=== PATIENT | female | born 1930 | race American Indian/Alaskan Native ===

== ENCOUNTER 2016-11-21 08:20 | Outpatient (CLI) | payer MEDICARE ==
--- NOTE | 2016-11-21 12:12 | Ultrasound Report ---
RENAL SONOGRAM: HISTORY: Chronic kidney disease. FINDINGS: Right kidney 7.9 x 3.6 x 3.9 cm. Cortical thickness 1.2 cm. No mass. No hydronephrosis. Left kidney 8.9 x 3.8 x 4 cm. Cyst at the upper pole of left kidney measures 4.3 x 4.1 x 4 cm. No hydronephrosis. IMPRESSION: Cyst upper pole left kidney.
== END 2016-11-21 08:21 | disposition home or self-care (01) ==
LOC: US 08:20
PROVIDERS: ATTEND Internal Medicine Nephrology
DX: N18.3 Chronic kidney disease, stage 3 (moderate) (principal); N28.1 Cyst of kidney, acquired
CPT/HCPCS: 76770

== ENCOUNTER 2017-05-16 11:22 | Inpatient (IN) | payer MEDICAID, MEDICARE ==
[2017-05-16] MEDS ORDERED: REGLAN IV ONE (11:57)
[2017-05-16] MEDS ORDERED: MORPHINE IV ONE (11:57)
[2017-05-16] MEDS ORDERED: TYLENOL #3 PO ONE (11:59)
--- NOTE | 2017-05-16 12:12 | Emergency Department Report ---
ED Chest Pain HPI - General Chief Complaint: Chest Pain Stated Complaint: CHEST PAIN Time Seen by Provider: 05/16/17 11:51 Source: patient, family, EMS Mode of arrival: Stretcher Limitations: Physical Limitation - History of Present Illness Initial Comments: This is a 87-year-old Afro-[place] female presents to the emergency department by EMS from home with complaint of chest pain that is going on for the past 3-4 hours prior to presentation. There is some radiation towards neck and jaw. She denies any shortness of breath at this time. She has a history of arthritis , asthma, CHF, multiple CVA, DVT, diabetes, coronary artery disease with OH, hypertension, renal and liver disease, among other comorbidities. Her primary care physician is Dr. Jorge Angela and her mobile pet groomer is Dr. Victor. Her daughter, whom she lives with, gave her a baby aspirin and placed a nitroglycerin patch on her. EMS and gave her a further 162 mg of aspirin. She denies any history of alcohol or back obese. No recent travel or sick contacts at home. Patient is legally blind. Severity scale (0 -10): 9 - Related Data Home Medications Medication Instructions Recorded Confirmed Last Taken Levothyroxine [Synthroid] 112 mcg PO Q48HR 10/04/15 05/16/17 05/15/17 Bumetanide (Nf) [Bumex 0.5mg tab] 0.5 mg PO DAILY 05/16/17 05/16/17 Unknown Ergocalciferol [Vitamin D2] 1 cap PO QWEEK 05/16/17 05/16/17 05/13/17 Metoprolol [Lopressor] 25 mg PO BID 05/16/17 05/16/17 05/15/17 Previous Rx's Medication Instructions Recorded Last Taken Type Aspirin [Aspirin BABY CHEW TAB] 81 mg PO QDAY tab.chew 07/19/16 05/15/17 Rx Nitroglycerin [Nitro Dur] 0.4 mg TD QDAY patch 07/19/16 05/15/17 Rx Simvastatin [Zocor TAB] 20 mg PO QHS tablet 07/19/16 05/15/17 Rx Zolpidem [Ambien] 10 mg PO HS tablet 07/19/16 05/15/17 Rx acetaZOLAMIDE [Diamox TAB] 250 mg PO BID tablet 07/19/16 05/15/17 Rx carBAMazepine [TEGretol] 200 mg PO QDAY tab.chew 07/19/16 05/15/17 Rx Allergies Allergy/AdvReac Type Severity Reaction Status Date / Time erythromycin base Allergy Swelling Verified 12/11/15 13:20 hydromorphone HCl Allergy Itching Verified 12/11/15 13:20 [From Dilaudid] morphine Allergy Itching/TONGUE/LIPS Verified 10/04/15 05:35 SWELLING oxytetracycline AdvReac Severe TONGUE Verified 08/21/13 11:13 [From Terramycin] SWELLS,BUMPS ON TONGUE oxytetracycline HCl AdvReac Severe TONGUE Verified 08/21/13 11:13 [From Terramycin] SWELLS,BUMPS ON TONGUE Tetracyclines AdvReac Severe UPSET Verified 08/21/13 11:13 STOMACH,TONGUE SWELLS gabapentin AdvReac Unknown Verified 08/16/16 17:06 Heart Score - HEART Score History: Highly suspicious EKG: Non-specific Age: > 65 Risk factors: > 3 risk factors or hx of atherosclerotic disease Troponin: < normal limit HEART Score: 7 ED Review of Systems ROS: Stated complaint: CHEST PAIN Other details as noted in HPI Comment: All other systems reviewed and negative Constitutional: denies: chills, fever Eyes: denies: eye pain, eye discharge, vision change ENT: denies: ear pain, throat pain Respiratory: denies: cough, shortness of breath, wheezing Cardiovascular: chest pain. denies: palpitations Gastrointestinal: denies: abdominal pain, nausea, diarrhea Genitourinary: denies: urgency, dysuria, discharge Musculoskeletal: arthralgia. denies: joint swelling Skin: denies: rash, lesions Neurological: denies: headache, weakness, paresthesias ED Past Medical Hx - Past Medical History Hx Hypertension: Yes Hx CVA: Yes Hx Heart Attack/AMI: Yes Hx Congestive Heart Failure: Yes Hx Diabetes: Yes Hx Deep Vein Thrombosis: Yes (left arm 08/2016) Hx Liver Disease: Yes Hx Renal Disease: Yes Hx Arthritis: Yes (hip, knee) Hx Headaches / Migraines: Yes Hx Seizures: Yes Hx Asthma: Yes Hx HIV: No Additional medical history: legally blind - Surgical History Past Surgical History?: Yes Hx Coronary Stent: Yes Hx Pacemaker: Yes Hx Cholecystectomy: Yes Additional Surgical History: bilateral mastectomy, 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 - Social History Smoking Status: Never Smoker Substance Use Type: None - Medications Home Medications: Home Medications Medication Instructions Recorded Confirmed Last Taken Type Levothyroxine [Synthroid] 112 mcg PO Q48HR 10/04/15 05/16/17 05/15/17 History Aspirin [Aspirin BABY CHEW TAB] 81 mg PO QDAY tab.chew 07/19/16 05/16/17 Rx Nitroglycerin [Nitro Dur] 0.4 mg TD QDAY patch 07/19/16 05/16/17 05/15/17 Rx Simvastatin [Zocor TAB] 20 mg PO QHS tablet 07/19/16 05/16/17 05/15/17 Rx Zolpidem [Ambien] 10 mg PO HS tablet 07/19/16 05/16/17 05/15/17 Rx acetaZOLAMIDE [Diamox TAB] 250 mg PO BID tablet 07/19/16 05/16/17 05/15/17 Rx carBAMazepine [TEGretol] 200 mg PO QDAY tab.chew 07/19/16 05/16/17 05/15/17 Rx Bumetanide (Nf) [Bumex 0.5mg tab] 0.5 mg PO DAILY 05/16/17 05/16/17 Unknown History Ergocalciferol [Vitamin D2] 1 cap PO QWEEK 05/16/17 05/16/17 05/13/17 History Metoprolol [Lopressor] 25 mg PO BID 05/16/17 05/16/17 05/15/17 History ED Physical Exam - General Limitations: Physical Limitation - Other Other exam information: GENERAL: The patient is well-developed well-nourished. HEENT: Normocephalic. Atraumatic. Extraocular motions are intact. Patient has moist mucous membranes. NECK: Supple. Trachea is midline. CHEST/LUNGS: Clear to auscultation. There is no respiratory distress noted. HEART/CARDIOVASCULAR: Regular. There is no tachycardia. There is no gallop rub or murmur. ABDOMEN: Abdomen is soft, nontender. Patient has normal bowel sounds. There is no abdominal distention. SKIN: Skin is warm and dry. NEURO: The patient is awake, alert. The patient is cooperative. The patient has no focal neurologic deficits. The patient has normal speech. MUSCULOSKELETAL: There is no tenderness or deformity. There is no limitation range of motion. There is no evidence of acute injury. ED Course Vital Signs 05/16/17 05/16/17 05/16/17 11:34 11:46 12:00 Temperature 98.4 F Pulse Rate 115 H 116 H 103 H Respiratory 25 H 27 H 14 Rate Blood Pressure 159/108 159/108 O2 Sat by Pulse 97 98 97 Oximetry 05/16/17 05/16/17 12:05 12:30 Temperature Pulse Rate 99 H Respiratory 20 13 Rate Blood Pressure 147/96 O2 Sat by Pulse 95 Oximetry SEDRICK score - Sedrick Score Age > 65: (1) Yes Aspirin use within the Past 7 Days: (1) Yes 3 or more CAD Risk Factors: (1) Yes 2 or more Angina events in past 24 hrs: (0) No Known CAD with more than 50% Stenosis: (0) No Elevated Cardiac Markers: (0) No ST Deviation Greater than 0.5mm: (0) No SEDIRCK Score: 3 ED Medical Decision Making - Lab Data Result diagrams: 05/16/17 12:21 05/16/17 12:21 - EKG Data -: EKG Interpreted by Me EKG shows normal: sinus rhythm, axis (left axis deviation), intervals ( prolonged QTC), QRS complexes (right bundle-branch block, left anterior fascicular block), ST-T waves (nonspecific ST-T waves) Rate: tachycardia (116 bpm) - EKG Data Interpretation: unchanged when compared t (08/19/16) - Radiology Data Radiology results: image reviewed interpreted by me: Chest x-ray did not show any acute process. Heart is normal shape and size. No effusions. No pneumothorax. No signs of pneumonia seen. - Medical Decision Making 87 her old female presents with acute chest pain starting a few hours prior to presentation. EKG does not show any signs of ST elevation OH and is unchanged from previous. Chest x-ray does not show any acute process. Labs are unremarkable including a negative troponin. Patient is compliant with her Eloquist and therefore low suspicion for pulmonary embolism. However she has advanced age with a history of multiple TIA/CVA, coronary artery disease with multiple OH. She will be admitted to the hospital for further evaluation, and continued telemetry, serial troponins and probable cardio consultation. Patient has been accepted for admission by the hospitalist, Dr. Gracie. - Differential Diagnosis OH, PE, pneumonia, CHF Critical Care Time: No Critical care attestation.: If time is entered above; I have spent that time in minutes in the direct care of this critically ill patient, excluding procedure time. ED Disposition Clinical Impression: HTN (hypertension) Qualifiers: Hypertension type: essential hypertension Qualified Code(s): I10 - Essential ( primary) hypertension CAD (coronary artery disease) Qualifiers: Coronary Disease-Associated Artery/Lesion type: unspecified vessel or lesion type [place] vs. transplanted heart: [place] heart Associated angina: with unspecified angina Qualified Code(s): I25.119 - Atherosclerotic heart disease of [place] coronary artery with unspecified angina pectoris Chest pain Qualifiers: Chest pain type: unspecified Qualified Code(s): R07.9 - Chest pain, unspecified Disposition: -09 OP ADMIT IP TO THIS HOSP Is pt being admited?: Yes Condition: Stable Instructions: Chest Pain (ED), Hypertension (ED) Referrals: PRIMARY CARE, [Primary Care Provider] - 3-5 Days Time of Disposition: 13:17
[2017-05-16 12:38] LABS: Basophils % (Auto) 1.2 % (0.0-1.8); Eosinophils % (Auto) 2.5 % (0.0-4.3); Hematocrit 41.7 % (30.3-42.9); Hemoglobin 13.4 gm/dl (10.1-14.3); Mean Corpuscular HGB Conc 32 % (30-34); Mean Corpuscular Hemoglobin 27 pg (28-32); Mean Corpuscular Volume 85 fl (79-97); Platelet Count 188 K/mm3 (140-440); Red Blood Count 4.93 M/mm3 (3.65-5.03); White Blood Count 7.3 K/mm3 (4.5-11.0)
--- NOTE | 2017-05-16 12:39 | Admit Criteria Form ---
Admission Criteria Documentation: CHEST PAIN Clinical Indications for Admission to Inpatient Care (Place 'X' for any and all applicable criteria): Admission is indicated for chest pain and ANY ONE of the following(1)(2)(3)(4)(5 ): [ ]I. Angina with acute coronary syndrome (Also use Myocardial Infarction or Angina guideline) [ ]II. Hemodynamic instability [ X]III. Angina needing acute intervention as indicated by ALL of the following (11)(12): [X ]a) Unstable angina is present as indicated by angina that is ANY ONE of the following: [ ]i) New onset [ ]ii) Nocturnal [ ]iii) Prolonged at rest [ X]iv) Progressive [X ]b) Angina warrants acute intervention as indicated by ANY ONE of the following: [ ]i) Recurrent angina (e.g, not responding as previously to treatment) [ ]ii) Angina at rest or with low-level activities despite initial medical therapy [ ]iii) New or presumably new ST-segment depression on ECG [ ]iv) Signs or symptoms of heart failure (eg, dyspnea, pulmonary edema) [ ]v) New or worsening mitral regurgitation [ ]vi) Hemodynamic instability [ ]vii) Dangerous arrhythmia (eg, sustained ventricular tachycardia) [ ]viii) History of percutaneous coronary intervention within 6 months [ ]ix) History of coronary artery bypass graft surgery [X ]x) MAYELA risk score of 2 or greater[A] [ ]xi) History of Diabetes(14) [ ]xii) High-risk cardiac ischemia findings on noninvasive testing (e.g, echocardiogram, treadmill testing, nuclear scan) [ ]xiii) Chronic renal insufficiency (ie, estimated GFR less than 60 mL/min/1.732m) [ ]xiv) Left ventricular ejection fraction less than 40% [ ]IV. Evidence of FL (eg, cardiac biomarkers positive, ST-segment elevation on ECG) also use Myocardial Infarction Criteria Form. [ ]V. Pulmonary edema [ ]. Respiratory distress [ ]VII. Chest pain indicative of serious diagnosis other than coronary artery disease (eg, aortic dissection) [ ]VIII. Contraindications and/or Inappropriate clinical situations for Observational Care in patients with Chest Pain, when ANY ONE of the following is required: [ ]a) Patient with risk factor for pulmonary embolism, acute coronary syndrome and myocardial infarction (18) [ ]b) Patient with Pulmonary embolism require an average LOS of 4.3 days, therefore emergency department observation management is inappropriate 18,23 [ ]c) Painful condition/s in the elderly, have the highest rate of recidivism after emergency department observation management (10.8%) 20,21,22 [ ]d) Elevated cardiac biomarker requires intensive and exhaustive care (19) [X ]IX. General contraindications and/or Inappropriate clinical situations for Observational Care in patients with Chest Pain, when ANY ONE of the following is required: [X ]a) Prediction of prolongation of LOS based on ANY ONE of the following may be considered as a contraindication for observational care 2, 3, 4, 5, 6, 7, 8, 9, 10, 11 [X ]i) Age > 65 yrs. [ X]ii) Patient arriving by ambulance [ ]iii) Patient with high acuity [ ]iv) Patient requiring vital sign monitoring [ ]v) Patient on IV medication [ ]b) Systolic blood pressures 180mmHg 3,12 [ ]c) Patient with altered mental status including delirium and other alteration of consciousness, (3) [ ]d) Patient whose discharge disposition will be to a intermediate home or rehabilitation home should not be managed in Emergency Department Observation Unit. CMS rule requires 3 days hospital stay before such placement. 3,13 [ ]e) Patient with failure to thrive due to broad array of etiologies 3,16,17 [ ]f) Inability to ambulate 3,14 Extended stay beyond goal length of stay may be needed for (1)(28): [ ]a) Specific condition diagnosed after evaluation (eg, pulmonary embolism, aortic dissection) [ ]b) Unstable angina [ ]c) Continued suspicion of acute coronary syndrome with inability to complete needed cardiac evaluation (eg, patient clinically unable to undergo stress testing) [ ]d) Myocardial infarction (Contents from ANGINA and CHEST PAIN clinical indications for admission to inpatient care have been integrated in this form) The original [employer] content created by [employer] has been revised. The portions of the content which have been revised are identified through the use of italic text or in bold, and [facility] has neither reviewed nor approved the modified material. All other unmodified content is copyright [facility]. Please see references footnoted in the original [facility] edition 2016 Admission Criteria Met: Yes
[2017-05-16 12:48] LABS: Anion Gap 18 mmol/L; BUN/Creatinine Ratio 14.54; Blood Urea Nitrogen 16 mg/dL (7-17); Calcium 9.1 mg/dL (8.4-10.2); Carbon Dioxide 21 mmol/L (22-30); Chloride 106.5 mmol/L (98-107); Glucose 115 mg/dL (65-100); Potassium 4.2 mmol/L (3.6-5.0); Sodium 141 mmol/L (137-145)
--- NOTE | 2017-05-16 12:56 | XRay Report ---
Portable chest: Chest pain. The right lung is well aerated and clear. The markings at the right lung base may be slightly prominent and there could be some areas of mild atelectasis. The remainder of the lung is clear. The aorta is tortuous with a probably normal sized heart. There are an intact bipolar pacemaker leads. Impression: Questionable atelectatic changes at the left base. Doubt infiltrate.
[2017-05-16] MEDS ORDERED: DUONEB *Not for PRN Use IH ONE (14:10)
[2017-05-16] MEDS ORDERED: NORCO 5/325 PO ONE (14:52)
[2017-05-16] MEDS ORDERED: ZOFRAN IV PRN ×2 (20:36→21:50)
[2017-05-16] MEDS: TYLENOL #3 PO PRN (20:48)
[2017-05-16] MEDS ORDERED: AMBIEN PO PRN (21:03)
--- NOTE | 2017-05-16 21:48 | History and Physical Report ---
History of Present Illness Date of examination: 05/16/17 Date of admission: 05/16/17 13:17 Chief complaint: Chest pain for 4 hours History of present illness: History of Present Illness This is a 87-year-old Afro-[place] female presents to the emergency department by EMS from home with complaint of chest pain that is going on for the past 3-4 hours prior to presentation. There is some radiation towards neck and jaw. She denies any shortness of breath at this time. She has a history of arthritis , asthma, CHF, multiple CVA, DVT, diabetes, coronary artery disease with VT, hypertension, renal and liver disease, among other comorbidities. Her primary care physician is Dr. Jorge Angela and her auricular acupuncturist is Dr. Victor. Her daughter, whom she lives with, gave her a baby aspirin and placed a nitroglycerin patch on her. EMS and gave her a further 162 mg of aspirin. She denies any history of alcohol or back obese. No recent travel or sick contacts at home. Patient is legally blind. Severity scale (0 -10): 9 Heart Score - HEART Score History: Highly suspicious EKG: Non-specific Age: > 65 Risk factors: > 3 risk factors or hx of atherosclerotic disease Troponin: < normal limit HEART Score: 7 Past Medical History Hx Hypertension: Yes Hx CVA: Yes Hx Heart Attack/AMI: Yes Hx Congestive Heart Failure: Yes Hx Diabetes: Yes Hx Deep Vein Thrombosis: Yes (left arm 08/2016) Hx Liver Disease: Yes Hx Renal Disease: Yes Hx Arthritis: Yes (hip, knee) Hx Headaches / Migraines: Yes Hx Seizures: Yes Hx Asthma: Yes Additional medical history: legally blind - Surgical History Past Surgical History?: Yes Hx Coronary Stent: Yes Hx Pacemaker: Yes Hx Cholecystectomy: Yes Additional Surgical History: bilateral mastectomy, 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 - Social History Smoking Status: Never Smoker Substance Use Type: None - Medications Home Medications: Home Medications Medication Instructions Recorded Confirmed Last Taken Type Levothyroxine [Synthroid] 112 mcg PO Q48HR 10/04/15 05/16/17 05/15/17 History Aspirin [Aspirin BABY CHEW TAB] 81 mg PO QDAY tab.chew 07/19/16 05/16/17 Rx Nitroglycerin [Nitro Dur] 0.4 mg TD QDAY patch 07/19/16 05/16/17 05/15/17 Rx Simvastatin [Zocor TAB] 20 mg PO QHS tablet 07/19/16 05/16/17 05/15/17 Rx Zolpidem [Ambien] 10 mg PO HS tablet 07/19/16 05/16/17 05/15/17 Rx acetaZOLAMIDE [Diamox TAB] 250 mg PO BID tablet 07/19/16 05/16/17 05/15/17 Rx carBAMazepine [TEGretol] 200 mg PO QDAY tab.chew 07/19/16 05/16/17 05/15/17 Rx Bumetanide (Nf) [Bumex 0.5mg tab] 0.5 mg PO DAILY 05/16/17 05/16/17 Unknown History Ergocalciferol [Vitamin D2] 1 cap PO QWEEK 05/16/17 05/16/17 05/13/17 History Metoprolol [Lopressor] 25 mg PO BID 05/16/17 05/16/17 05/15/17 History ROS: Stated complaint: CHEST PAIN Other details as noted in HPI Comment: All other systems reviewed and negative Constitutional: denies: chills, fever Eyes: denies: eye pain, eye discharge, vision change ENT: denies: ear pain, throat pain Respiratory: denies: cough, shortness of breath, wheezing Cardiovascular: chest pain. denies: palpitations Gastrointestinal: denies: abdominal pain, nausea, diarrhea Genitourinary: denies: urgency, dysuria, discharge Musculoskeletal: arthralgia. denies: joint swelling Skin: denies: rash, lesions Neurological: denies: headache, weakness, paresthesias Medications and Allergies Allergies Allergy/AdvReac Type Severity Reaction Status Date / Time erythromycin base Allergy Swelling Verified 12/11/15 13:20 hydromorphone HCl Allergy Itching Verified 12/11/15 13:20 [From Dilaudid] morphine Allergy Itching/TONGUE/LIPS Verified 10/04/15 05:35 SWELLING oxytetracycline AdvReac Severe TONGUE Verified 08/21/13 11:13 [From Terramycin] SWELLS,BUMPS ON TONGUE oxytetracycline HCl AdvReac Severe TONGUE Verified 08/21/13 11:13 [From Terramycin] SWELLS,BUMPS ON TONGUE Tetracyclines AdvReac Severe UPSET Verified 11/14/13 11:13 STOMACH,TONGUE SWELLS gabapentin AdvReac Unknown Verified 08/16/16 17:06 Home Medications Medication Instructions Recorded Confirmed Last Taken Type Levothyroxine [Synthroid] 112 mcg PO Q48HR 10/04/15 05/16/17 05/15/17 History Aspirin [Aspirin BABY CHEW TAB] 81 mg PO QDAY tab.chew 07/19/16 05/16/17 Rx Nitroglycerin [Nitro Dur] 0.4 mg TD QDAY patch 07/19/16 05/16/17 05/15/17 Rx Simvastatin [Zocor TAB] 20 mg PO QHS tablet 07/19/16 05/16/17 05/15/17 Rx Zolpidem [Ambien] 10 mg PO HS tablet 07/19/16 05/16/17 05/15/17 Rx acetaZOLAMIDE [Diamox TAB] 250 mg PO BID tablet 07/19/16 05/16/17 05/15/17 Rx carBAMazepine [TEGretol] 200 mg PO QDAY tab.chew 07/19/16 05/16/17 05/15/17 Rx Bimatoprost [Lumigan 0.01%] 1 drop OP QPM 05/16/17 05/16/17 1 Day Ago History Bumetanide (Nf) [Bumex 0.5mg tab] 0.5 mg PO DAILY 05/16/17 05/16/17 Unknown History Ergocalciferol [Vitamin D2] 1 cap PO QWEEK 05/16/17 05/16/17 05/13/17 History Metoprolol [Lopressor] 25 mg PO BID 05/16/17 05/16/17 05/15/17 History Rivaroxaban [Xarelto] 15 mg PO DAILY 05/16/17 05/16/17 1 Day Ago History Zolpidem [Ambien] 10 mg PO QHS 05/16/17 05/16/17 1 Day Ago History Active Meds: Active Medications Acetaminophen/Codeine Phosphate (Tylenol #3) 2 tab PO Q4H PRN PRN Reason: Pain, Moderate (4-6) Last Admin: 05/16/17 20:48 Dose: 2 tab Acetazolamide (Diamox) 250 mg PO BID PERI Carbamazepine (Tegretol) 200 mg PO DAILY PERI Latanoprost (Xalatan 0.005%) 1 drops OU QPM [facility] Levothyroxine Sodium (Synthroid) 112 mcg PO Q48H [facility] Metoprolol Tartrate (Lopressor) 25 mg PO BID [facility] Ondansetron HCl (Zofran) 4 mg IV Q8H PRN PRN Reason: Nausea And Vomiting Last Admin: 05/16/17 20:49 Dose: 4 mg Rivaroxaban (Xarelto) 15 mg PO QDAY PERI PRN Reason: Protocol Simvastatin (Zocor) 20 mg PO QHS PERI Zolpidem Tartrate (Ambien) 10 mg PO QHS PRN PRN Reason: Insomnia Exam - Physical Exam Narrative exam: Lying comfortably - Constitutional Vitals: Temp Pulse Resp BP Pulse Ox 98.7 F 72 18 136/86 96 05/16/17 20:07 05/16/17 20:23 05/16/17 20:07 05/16/17 20:07 05/16/17 20:07 General appearance: Present: no acute distress, well-nourished - EENT Eyes: Present: PERRL ENT: hearing intact, clear oral mucosa - Neck Neck: Present: supple, normal ROM - Respiratory Respiratory effort: normal Respiratory: bilateral: CTA - Cardiovascular Heart rate: 80 Rhythm: regular Heart Sounds: Present: S1 & S2. Absent: rub, click - Extremities Extremities: no ischemia, pulses intact, pulses symmetrical, No edema Peripheral Pulses: within normal limits - Abdominal General gastrointestinal: Present: soft, non-tender, non-distended, normal bowel sounds Female genitourinary: Present: normal - Rectal Rectal Exam: deferred - Integumentary Integumentary: Present: clear, warm, dry - Musculoskeletal Musculoskeletal: gait normal, strength equal bilaterally - Psychiatric Psychiatric: appropriate mood/affect, intact judgment & insight - Neurologic Neurologic: CNII-XII intact, moves all extremities - Allied Health Allied health notes reviewed: nursing Results - Labs CBC & Chem 7: 05/16/17 12:21 05/17/17 05:19 Labs: Laboratory Last Values WBC 7.3 K/mm3 (4.5-11.0) 05/16/17 12:21 RBC 4.93 M/mm3 (3.65-5.03) 05/16/17 12:21 Hgb 13.4 gm/dl (10.1-14.3) 05/16/17 12:21 Hct 41.7 % (30.3-42.9) 05/16/17 12:21 MCV 85 fl (79-97) 05/16/17 12:21 MCH 27 pg (28-32) L 05/16/17 12:21 MCHC 32 % (30-34) 05/16/17 12:21 RDW 16.0 % (13.2-15.2) H 05/16/17 12:21 Plt Count 188 K/mm3 (140-440) 05/16/17 12:21 Lymph % (Auto) 17.1 % (13.4-35.0) 05/16/17 12:21 [place] % (Auto) 12.1 % (0.0-7.3) H 05/16/17 12:21 Eos % (Auto) 2.5 % (0.0-4.3) 05/16/17 12:21 Baso % (Auto) 1.2 % (0.0-1.8) 05/16/17 12:21 Lymph # 1.2 K/mm3 (1.2-5.4) 05/16/17 12:21 [place] # 0.9 K/mm3 (0.0-0.8) H 05/16/17 12:21 Eos # 0.2 K/mm3 (0.0-0.4) 05/16/17 12:21 Baso # 0.1 K/mm3 (0.0-0.1) 05/16/17 12:21 Seg Neutrophils % 67.1 % (40.0-70.0) 05/16/17 12:21 Seg Neutrophils # 4.9 K/mm3 (1.8-7.7) 05/16/17 12:21 Sodium 141 mmol/L (137-145) 05/16/17 12:21 Potassium 4.2 mmol/L (3.6-5.0) 05/16/17 12:21 Chloride 106.5 mmol/L (98-107) 05/16/17 12:21 Carbon Dioxide 21 mmol/L (22-30) L 05/16/17 12:21 Anion Gap 18 mmol/L 05/16/17 12:21 BUN 16 mg/dL (7-17) 05/16/17 12:21 Creatinine 1.1 mg/dL (0.7-1.2) 05/16/17 12:21 Estimated GFR 57 ml/min 05/16/17 12:21 BUN/Creatinine Ratio 14.54 % 05/16/17 12:21 Glucose 115 mg/dL (65-100) H 05/16/17 12:21 Calcium 9.1 mg/dL (8.4-10.2) 05/16/17 12:21 Troponin T < 0.010 ng/mL (0.00-0.029) 05/16/17 17:15 NT-Pro-B Natriuret Pep 1223 pg/mL (0-900) H 05/16/17 12:20 Short CBC 05/16/17 Range/Units 12:21 WBC 7.3 (4.5-11.0) K/mm3 Hgb 13.4 (10.1-14.3) gm/dl Hct 41.7 (30.3-42.9) % Plt Count 188 (140-440) K/mm3 BMP 05/16/17 05/17/17 12:21 05:19 Sodium 141 135 L Potassium 4.2 4.1 Chloride 106.5 103.8 Carbon Dioxide 21 L 17 L BUN 16 15 Creatinine 1.1 1.0 Glucose 115 H 92 Calcium 9.1 8.3 L Cardiac Enzymes 05/16/17 05/16/17 05/16/17 Range/Units 12:21 17:15 21:29 Total Creatine Kinase (30-135) units/L CK-MB (CK-2) (0.0-4.0) ng/mL Troponin T < 0.010 < 0.010 < 0.010 (0.00-0.029) ng/mL 05/17/17 05/17/17 Range/Units 00:09 05:19 Total Creatine Kinase 169 H 141 H (30-135) units/L CK-MB (CK-2) < 1.0 < 1.0 (0.0-4.0) ng/mL Troponin T < 0.010 < 0.010 (0.00-0.029) ng/mL Liver Function 05/17/17 Range/Units 05:19 Total Bilirubin 0.80 (0.1-1.2) mg/dL AST 50 H (5-40) units/L ALT 33 (7-56) units/L Alkaline Phosphatase 90 (35-129) units/L Albumin 3.2 L (3.9-5) g/dL - Imaging and Cardiology EKG: report reviewed (sinus tach 116/min rbbb t wave Abnl) Assessment and Plan Advance Directives: Yes (Full code) VTE prophylaxis?: Chemical Plan of care discussed with patient/family: Yes - Patient Problems (1) Acute coronary syndrome Current Visit: Yes Status: Acute Plan to address problem: Chest pain r/o VT protocol.Serial cardiac enzymes and Lexiscan in AM (2) CAD (coronary artery disease) Current Visit: Yes Status: Chronic Qualifiers: Coronary Disease-Associated Artery/Lesion type: [place] artery [place] vs. transplanted heart: [place] heart Associated angina: with unspecified angina Qualified Code(s): I25.119 - Atherosclerotic heart disease of [place] coronary artery with unspecified angina pectoris Plan to address problem: Cont ASA and xarelto (3) HTN (hypertension) Current Visit: Yes Status: Chronic Qualifiers: Hypertension type: essential hypertension Qualified Code(s): I10 - Essential (primary) hypertension Plan to address problem: Cont anti hypertensives (4) Hypothyroidism Current Visit: Yes Status: Chronic Qualifiers: Hypothyroidism type: acquired Qualified Code(s): E03.9 - Hypothyroidism, unspecified Plan to address problem: Cont Synthyroid (5) CHF (congestive heart failure) Current Visit: Yes Status: Chronic Qualifiers: Congestive heart failure type: combined Congestive heart failure chronicity : C Plan to address problem: On Bumex Check ECHO (6) DVT prophylaxis Current Visit: No Status: Acute Plan to address problem: On Lovenox
[2017-05-16] MEDS ORDERED: TYLENOL PO PRN (21:50)
[2017-05-16] MEDS ORDERED: DULCOLAX PR PRN (21:50)
[2017-05-16] MEDS ORDERED: MILK OF MAGNESIA PO PRN (21:50)
[2017-05-16] MEDS ORDERED: DILAUDID IV PRN (21:50)
[2017-05-16] MEDS ORDERED: DIAMOX PO SCH (22:00)
[2017-05-16] MEDS ORDERED: ZOCOR PO SCH (22:00)
[2017-05-16] MEDS ORDERED: LOPRESSOR PO SCH (22:00)
[2017-05-16] MEDS ORDERED: XARELTO PO SCH (22:00)
[2017-05-16] MEDS: ZOCOR PO SCH (22:32)
[2017-05-16] MEDS: AMBIEN PO SCH (22:32)
[2017-05-16] MEDS: DIAMOX PO SCH (22:33)
[2017-05-16] MEDS: LOPRESSOR PO SCH (22:33)
[2017-05-17 00:54] LABS: Creatine Kinase 169 units/L (30-135)
[2017-05-17 01:06] LABS: Creatine Kinase MB < 1.0 ng/mL (0.0-4.0)
[2017-05-17] MEDS: TYLENOL #3 PO PRN ×3 (05:54→20:21)
[2017-05-17] MEDS ORDERED: SYNTHROID PO SCH ×2 (06:00)
[2017-05-17 06:41] LABS: Alanine Aminotransferase 33 units/L (7-56); Albumin 3.2 g/dL (3.9-5); Albumin/Globulin Ratio 0.9 %; Alkaline Phosphatase 90 units/L (35-129); Anion Gap 18 mmol/L; Blood Urea Nitrogen 15 mg/dL (7-17); Calcium 8.3 mg/dL (8.4-10.2); Carbon Dioxide 17 mmol/L (22-30); Chloride 103.8 mmol/L (98-107); Creatine Kinase 141 units/L (30-135); Glucose 92 mg/dL (65-100); Potassium 4.1 mmol/L (3.6-5.0); Sodium 135 mmol/L (137-145); Total Protein 6.8 g/dL (6.3-8.2)
[2017-05-17 06:46] LABS: Creatine Kinase MB < 1.0 ng/mL (0.0-4.0)
[2017-05-17] MEDS: LOPRESSOR PO SCH (08:05)
--- NOTE | 2017-05-17 08:18 | Progress Note ---
Assessment and Plan Assessment and plan: Acute coronary syndrome EKG sinus rhythm Negative cardiac enzyme X3 Patient awaiting for stress test toady. Started on ASA Nitroglycerin when necessary CAD (coronary artery disease) Continue on aspirin and Xarelto HTN (hypertension) Continue home antihypertensive medication Hydralazine for SBP >160 when necessary Hypothyroidism Continue on Synthroid CHF (congestive heart failure) Continue on Bumex Echocardiogram ordered Strict I/o's, and daily weights Low-sodium/cardiac diet, fluid restriction 1200 every 24 hours Closely monitor electrolytes Cardiology evaluation History of Breast CA Chest Pain reproducible by palpation Patient has Double mastectomy CTA to rule out Pulmonary embolism (PE) and if there is metastatic cancer. DVT prophylaxis On Lovenox History Interval history: Patient has uneventful overnight, she still complain of chest pain but verbalized feeling better than yesterday. Hospitalist Physical - Constitutional Vitals: Temp Pulse Resp BP Pulse Ox 98.7 F 112 H 20 126/77 98 05/17/17 05:28 05/17/17 05:28 05/17/17 05:28 05/17/17 05:28 05/17/17 05:28 General appearance: Present: no acute distress, well-nourished - EENT Eyes: Present: PERRL ENT: hearing intact - Neck Neck: Present: supple - Respiratory Respiratory effort: normal Respiratory: bilateral: CTA - Cardiovascular Rhythm: regular Heart Sounds: Present: S1 & S2 - Extremities Extremities: no ischemia Peripheral Pulses: within normal limits - Abdominal General gastrointestinal: soft, non-tender - Integumentary Integumentary: Present: clear, warm, dry - Psychiatric Psychiatric: appropriate mood/affect - Neurologic Neurologic: CNII-XII intact - Allied Health Allied health notes reviewed: nursing Results - Labs CBC & Chem 7: 05/16/17 12:21 05/17/17 05:19 Labs: Laboratory Last Values WBC 7.3 K/mm3 (4.5-11.0) 05/16/17 12:21 RBC 4.93 M/mm3 (3.65-5.03) 05/16/17 12:21 Hgb 13.4 gm/dl (10.1-14.3) 05/16/17 12:21 Hct 41.7 % (30.3-42.9) 05/16/17 12:21 MCV 85 fl (79-97) 05/16/17 12:21 MCH 27 pg (28-32) L 05/16/17 12:21 MCHC 32 % (30-34) 05/16/17 12:21 RDW 16.0 % (13.2-15.2) H 05/16/17 12:21 Plt Count 188 K/mm3 (140-440) 05/16/17 12:21 Lymph % (Auto) 17.1 % (13.4-35.0) 05/16/17 12:21 [place] % (Auto) 12.1 % (0.0-7.3) H 05/16/17 12:21 Eos % (Auto) 2.5 % (0.0-4.3) 05/16/17 12:21 Baso % (Auto) 1.2 % (0.0-1.8) 05/16/17 12:21 Lymph # 1.2 K/mm3 (1.2-5.4) 05/16/17 12:21 [place] # 0.9 K/mm3 (0.0-0.8) H 05/16/17 12:21 Eos # 0.2 K/mm3 (0.0-0.4) 05/16/17 12:21 Baso # 0.1 K/mm3 (0.0-0.1) 05/16/17 12:21 Seg Neutrophils % 67.1 % (40.0-70.0) 05/16/17 12:21 Seg Neutrophils # 4.9 K/mm3 (1.8-7.7) 05/16/17 12:21 Sodium 135 mmol/L (137-145) L 05/17/17 05:19 Potassium 4.1 mmol/L (3.6-5.0) 05/17/17 05:19 Chloride 103.8 mmol/L (98-107) 05/17/17 05:19 Carbon Dioxide 17 mmol/L (22-30) L 05/17/17 05:19 Anion Gap 18 mmol/L 05/17/17 05:19 BUN 15 mg/dL (7-17) 05/17/17 05:19 Creatinine 1.0 mg/dL (0.7-1.2) 05/17/17 05:19 Estimated GFR > 60 ml/min 05/17/17 05:19 BUN/Creatinine Ratio 15.00 % 05/17/17 05:19 Glucose 92 mg/dL (65-100) 05/17/17 05:19 Calcium 8.3 mg/dL (8.4-10.2) L 05/17/17 05:19 Total Bilirubin 0.80 mg/dL (0.1-1.2) 05/17/17 05:19 AST 50 units/L (5-40) H 05/17/17 05:19 ALT 33 units/L (7-56) 05/17/17 05:19 Alkaline Phosphatase 90 units/L (35-129) 05/17/17 05:19 Total Creatine Kinase 141 units/L (30-135) H 05/17/17 05:19 CK-MB (CK-2) < 1.0 ng/mL (0.0-4.0) 05/17/17 05:19 CK-MB (CK-2) Rel Index 0.7 (0-4) 05/17/17 05:19 Troponin T < 0.010 ng/mL (0.00-0.029) 05/17/17 05:19 NT-Pro-B Natriuret Pep 1223 pg/mL (0-900) H 05/16/17 12:20 Total Protein 6.8 g/dL (6.3-8.2) 05/17/17 05:19 Albumin 3.2 g/dL (3.9-5) L 05/17/17 05:19 Albumin/Globulin Ratio 0.9 % 05/17/17 05:19
--- NOTE | 2017-05-17 08:18 | Discharge Summary ---
Providers - Providers Date of Admission: 05/16/17 13:17 Attending physician: ALBA HAYNES Primary care physician: PEEWEE SHRESTHA MD Hospitalization Condition: Stable Core Measure Documentation - Palliative Care Palliative Care/ Comfort Measures: Not Applicable Exam - Constitutional Vitals: Temp Pulse Resp BP Pulse Ox 98.7 F 112 H 20 126/77 98 05/17/17 05:28 05/17/17 05:28 05/17/17 05:28 05/17/17 05:28 05/17/17 05:28 Plan Follow up with: PRIMARY MD FADY [Primary Care Provider] - 3-5 Days
[2017-05-17] MEDS ORDERED: BUMETANIDE 0.5 MG PO SCH (10:00)
[2017-05-17] MEDS ORDERED: LEXISCAN IV ONE ×2 (11:47→11:50)
[2017-05-17] MEDS: DIAMOX PO SCH ×2 (14:28→22:12)
[2017-05-17] MEDS: BABY ASPIRIN PO SCH (14:28)
[2017-05-17] MEDS: BUMEX PO SCH ×2 (14:29→15:04)
[2017-05-17] MEDS ORDERED: XARELTO PO SCH (17:00)
[2017-05-17] MEDS ORDERED: XALATAN 0.005% OU SCH ×2 (18:00→20:00)
[2017-05-17] MEDS ORDERED: NON-FORMULARY (Bimatoprost [Lumigan 0.01%] 1 DROP) OP SCH (18:00)
--- NOTE | 2017-05-17 22:03 | Treadmill Report ---
LEXISCAN STRESS TEST REPORT REASON FOR STUDY: Chest pain. STRESS TEST PROTOCOL: The patient received 0.4 mg of Lexiscan intravenously over 10 seconds. Technetium-99m tetrofosmin was subsequently injected. Baseline EKG, atrial flutter with variable AV block, right bundle branch block and left anterior fascicular block. Lexiscan EKG, no significant change from baseline. No chest pain. No arrhythmias other than baseline atrial flutter. IMPRESSION: Nondiagnostic due to baseline EKG abnormalities. Nuclear imaging report to follow. [facility]# [id number] [facility]
[2017-05-17] MEDS: ZOCOR PO SCH (22:11)
[2017-05-17] MEDS: AMBIEN PO SCH (22:11)
[2017-05-18] MEDS: LOPRESSOR PO SCH ×2 (00:33→10:33)
--- NOTE | 2017-05-18 03:21 | Treadmill Report ---
THALLIUM REPORT REASON FOR STUDY: Chest pain. IMAGING PROTOCOL: The patient received Tc-99m Tetrofosmin for rest and stress imaging.Imaging for all procedures was completed 30-90 minutes following the initial injection ofTechnetium 99m Tetrofosmin. SPECT imaging in the 180 degree arc was performed in the right anterior oblique projection. Computerized reconstruction of the images was performed for analysis. NUCLEAR IMAGING RESULTS: Normal left ventricular cavity size with no change from stress to rest. Distribution of radionuclide within the left ventricle revealed normal myocardial photon uptake with stress and rest imaging. Gated SPECT imaging revealed normal global LV systolic function with no significant wall motion abnormalities. The calculated left ventricular ejection fraction is 61%. IMPRESSION: Normal stress and rest myocardial perfusion imaging. Normal global LV systolic function with no significant wall motion abnormalities. EF 61%. No evidence of significant stress-induced ischemia or prior infarction. JOB# [id number] DANIELLE/LEILANI LOPEZ
--- NOTE | 2017-05-18 08:50 | Discharge Summary ---
Providers - Providers Date of Admission: 05/16/17 13:17 Date of discharge: 05/18/17 Attending physician: ALBA HAYNES Primary care physician: DEPARTMENT STORE SALESPERSON Hospitalization Reason for admission: cp Condition: Stable Hospital course: This is an 87-year-old -[place] female with significant past medical history of breast cancer status post double mastectomy, osteoarthritis, asthma, CHF, multiple CVAs, DVT, diabetes mellitus type 2, coronary artery disease with history of [place], hypertension, renal and liver disease who presented through the emergency department with chief complaint of chest pain that lasted 3-4 hours prior to admission. Patient reported some radiation towards the neck and jaw. Patient denied any dyspnea. Patient was evaluated with stress thallium which was found to be negative. Echocardiogram revealed normal EF. Upon exam, patient was noted to have reproducible pain with palpation. Given her history of breast cancer, CT of the chest was obtained to rule out PE as well as potential metastases to the ribs or chest wall. CT of the chest was found to be negative. Patient is felt to have received maximal hospital benefit will be discharged home. Etiology of chest pain likely costochondritis. Dedicated discharge time 32 minutes. Disposition: DC-01 TO HOME OR SELFCARE Time spent for discharge: 32 - Discharge Diagnoses (1) Chest pain Status: Acute Qualifiers: Chest pain type: unspecified Ischemic chest pain type: I Qualified Code(s ): R07.9 - Chest pain, unspecified (2) CAD (coronary artery disease) Status: Chronic Qualifiers: Coronary Disease-Associated Artery/Lesion type: [place] artery [place] vs. transplanted heart: [place] heart Associated angina: with unspecified angina Qualified Code(s): I25.119 - Atherosclerotic heart disease of [place] coronary artery with unspecified angina pectoris (3) Chest pain Status: Acute Qualifiers: Chest pain type: unspecified Ischemic chest pain type: I Qualified Code(s ): R07.9 - Chest pain, unspecified Comment: Test pain resolved she did not have any further chest pain was atypical noncardiac in nature. Workup cardiology negative as well. Follow with Dr. Victor in the office 3-5 days. (4) Musculoskeletal chest pain Status: Acute (5) Diabetes Status: Chronic Qualifiers: Diabetes mellitus type: type 2 Diabetes mellitus complication status: without complication Diabetes mellitus complication detail: D Diabetic retinopathy severity: D Proliferative retinopathy type: P Diabetes mellitus macular edema: D Diabetes mellitus termite technician insulin use: with termite technician use Laterality: L Chronic kidney disease stage: C Qualified Code(s): E11.9 - Type 2 diabetes mellitus without complications; Z79.4 - moth exterminator (current) use of insulin Comment: Neuropathy was also doesn't cause. Patient blood sugar remains optimally controlled since she was here from 75-105 Accu-Cheks. (6) Diabetes mellitus type 2 in obese Status: Chronic Core Measure Documentation - Palliative Care Palliative Care/ Comfort Measures: Not Applicable - Core Measures Any of the following diagnoses?: none Exam - Constitutional Vitals: Temp Pulse Resp BP Pulse Ox 98.8 F 113 H 20 115/60 98 05/18/17 05:09 05/18/17 05:09 05/18/17 05:05/18/17 05:05/18/17 05:09 General appearance: Present: no acute distress, well-nourished - EENT Eyes: Present: PERRL ENT: hearing intact, clear oral mucosa - Neck Neck: Present: supple, normal ROM - Respiratory Respiratory effort: normal Respiratory: bilateral: CTA - Cardiovascular Heart Sounds: Present: S1 & S2. Absent: rub, click - Extremities Extremities: pulses symmetrical, No edema Peripheral Pulses: within normal limits - Abdominal General gastrointestinal: Present: soft, non-tender, non-distended, normal bowel sounds Female genitourinary: Present: normal - Integumentary Integumentary: Present: clear, warm, dry - Musculoskeletal Musculoskeletal: gait normal, strength equal bilaterally - Psychiatric Psychiatric: appropriate mood/affect, intact judgment & insight - Neurologic Neurologic: CNII-XII intact, moves all extremities Plan Activity: no restrictions Weight Bearing Status: Full Weight Bearing Diet: low fat, low cholesterol, low salt Follow up with: PRIMARY CARE,MD [Primary Care Provider] - 3-5 Days Prescriptions: Acetaminophen/Codeine [Tylenol /Codeine # 3 tab] 2 tab PO Q4H PRN #10 tablet PRN Reason: Pain, Moderate (4-6)
[2017-05-18] MEDS ORDERED: NACL ONE (08:58)
[2017-05-18 09:11] VITALS: BP 111/71
--- NOTE | 2017-05-18 09:31 | Cat Scan Report ---
CTA chest: History: Chest pain, history of breast cancer. Findings: No endobronchial or mediastinal mass. No mediastinal hilar or axillary adenopathy. No evidence of aortic aneurysm. No evidence of pulmonary embolism. No pericardial effusion. Minimal pleural effusion or thickening. No discrete nodularity in the lung parenchyma. No consolidation. Pleural based scarring bilaterally. Impression: No evidence of pulmonary embolism. No mass or consolidation. Bilateral pleural thickening with pleural-based scarring in the lung parenchyma.
[2017-05-18] MEDS ORDERED: SYNTHROID PO SCH (10:00)
[2017-05-18] MEDS: BUMEX PO SCH (10:31)
[2017-05-18] MEDS: BABY ASPIRIN PO SCH (10:32)
[2017-05-18] MEDS: DIAMOX PO SCH (10:33)
--- NOTE | 2017-05-18 11:23 | Query- Heart Failure ---
Addison Kolb Shaun Date:___05/18/17 Motor Grader Operator/CDS: Jeff Joel Phone#:___[phone] Exercise your independent professional judgment when responding to query. Questions asked do not imply a particular answer is desired or expected. We greatly appreciate your clarification on this issue. Clinical Documentation States: 87 year old female was admitted on 05/16/17. The discharge summary states " This is an 87-year-old -Mal[place] female with significant past medical history of breast cancer status post double mastectomy, osteoarthritis, asthma, CHF, multiple CVAs, DVT, diabetes mellitus type 2, coronary artery disease with history of [place], hypertension, renal and liver disease who presented through the emergency department with chief complaint of chest pain that lasted 3-4 hours prior to admission. " The H&P states " (5) CHF (congestive heart failure) " Clinical Findings Show: BNP: 1223 (05/16/17) If possible, Please Clarify if you mean: Acuity: [ ] Acute [ ] Acute on Chronic [x ] Chronic Type: [ ] Systolic Heart Failure [ x] Diastolic Heart Failure [ ] Combined Heart Failure [ ] Other: Present on Admission: [ x] Yes (Y) [ ] Clinically undeterminable (W) [ ] No (N) Please also document response in your Progress Notes and/or Discharge Summary and indicate if the condition was present on admission. JOHN
== END 2017-05-18 17:46 | disposition home or self-care (01) | DRG 205 ==
LOC: ED 11:22 → 4A 13:17
PROVIDERS: ADMIT Internal Medicine; ATTEND Hospitalist
DX: M94.0 Chondrocostal junction syndrome [Tietze] (principal); I50.33 Acute on chronic diastolic (congestive) heart failure; E03.9 Hypothyroidism, unspecified; E11.9 Type 2 diabetes mellitus without complications; I11.0 Hypertensive heart disease with heart failure; J45.909 Unspecified asthma, uncomplicated; I25.10 Atherosclerotic heart disease of native coronary artery without angina pectoris; I24.9 Acute ischemic heart disease, unspecified; K76.9 Liver disease, unspecified; H54.8 Legal blindness, as defined in USA; G43.909 Migraine, unspecified, not intractable, without status migrainosus; E66.9 Obesity, unspecified; M13.859 Other specified arthritis, unspecified hip; M13.869 Other specified arthritis, unspecified knee; Z79.899 Other long term (current) drug therapy; Z88.1 Allergy status to other antibiotic agents; Z88.6 Allergy status to analgesic agent; Z88.8 Allergy status to other drugs, medicaments and biological substances; I25.2 Old myocardial infarction; Z95.5 Presence of coronary angioplasty implant and graft; Z95.0 Presence of cardiac pacemaker; Z90.49 Acquired absence of other specified parts of digestive tract; Z90.13 Acquired absence of bilateral breasts and nipples; Z79.4 Long term (current) use of insulin; Z68.36 Body mass index [BMI] 36.0-36.9, adult; Z85.3 Personal history of malignant neoplasm of breast; Z86.73 Personal history of transient ischemic attack (TIA), and cerebral infarction without residual deficits; Z86.718 Personal history of other venous thrombosis and embolism
CPT/HCPCS: 36415; 71010; 71275; 78452; 80048; 80053; 82550; 82553; 83880; 84484; 85025; 93005; 93010; 93017; 93306; 94640; 94760; 96374; A9502; J2405; J2765; J2785; Q9967